=== PATIENT | female | born 2000 | race Caucasian/White ===

== ENCOUNTER 2019-04-23 16:27 | Emergency (ER) | payer BC, SELFPAY ==
[2019-04-23 16:29] VITALS: BP 108/73; PULSE 69; RESP 18; TEMP 36.7; O2SAT 97; BMI 24.0
--- NOTE | 2019-04-23 16:52 | ED.DCSUM_ITS ---
- ER Visit Summary Date of Service: 04/23/19 Chief Complaint: Facial laceration History of Present Illness: The patient is a 19 F presenting with facial laceration. Patient states she was playing basketball. She ran into another player's mouth and has a laceration above her right eyebrow. She had no loss of consciousness. No vomiting. No other injuries. Tetanus is up-to-date. Physical Examination: Vitals are stable. Patient is afebrile. Alert no acute distress. HEENT exam 2.5 cm laceration right eyebrow Neck is nontender Lungs are clear and equal bilaterally. Heart is regular rate and rhythm. Extremities are unremarkable. Skin is warm and dry. No focal neurologic deficit. Remainder of exam is unremarkable. Emergency Department Course and Treatment: Discussed options for wound closure with the patient. Advised risk of infection. She would like to proceed with suture repair. Wound was copiously irrigated. Anesthetized with lidocaine. Wound was approximated with 2, 6-0 simple sutures. Patient tolerated this well. Advised wound care instructions. She is given Augmentin and a prescription for Augmentin. Advised return the ED for worsening complaints. Disposition: Discharge home Impression: Facial laceration, laceration repair This note was generated with [employer] dictation software. It may contain incorrect words, spelling, and punctuation that were not noted in review of the chart prior to signing ED Disposition - Plan for ED Patient: Instructions: LACERATION, Face (Suture or Tape) Prescriptions: Amox/Clavulanate Tablet [Augmentin Tablet] 875 mg PO Q12H #14 tab Prescription Printed
[2019-04-23] MEDS: Amox/Clavulanate 875 MG Tablet PO (17:01)
== END 2019-04-23 17:40 | disposition home or self-care (01) ==
LOC: ED 17:31
PROVIDERS: Emergency Provider Emergency Medicine
DX: S01.111A Laceration without foreign body of right eyelid and periocular area, initial encounter (principal); W51.XXXA Accidental striking against or bumped into by another person, initial encounter; Y93.67 Activity, basketball; Y99.8 Other external cause status
CPT/HCPCS: 12011; 99284